=== PATIENT | female | born 1960 | race Caucasian/White ===

== ENCOUNTER 2020-09-12 09:30 | Day surgery (SDC) | payer BC ==
[~2020-09-12] VITALS: Ht 167.6 cm; Wt 103.6 kg
[~2020-09-12 09:30] MED LIST: AMLO5 PO; ASPI325 PO; LAMO25 PO; LOSA50 PO; METO100 PO; SITA100T2 PO; ZYRTEC10 M2 PO
--- NOTE | 2020-09-12 10:15 | NUR ---
PT [facility]. Ambulatory in Day Surgery. History, Chart, Medications and Allergies reviewed before start of procedure. Lungs clear T/O to Auscultation. Patient confirms NPO status and agrees with scheduled surgery. Pre-Op teaching done. Pt verbalizes understanding. Patient States Post-Procedure ride home has been arranged.
--- NOTE | 2020-09-12 10:32 | NUR ---
09/12/20 1032 Tyrone Beauchamp History, Chart, Medications and Allergies reviewed before start of procedure. MONITOR INTACT WITH CONTINUOUS PULSE OXIMETRY AND INTERMITTENT BP. 3-LEAD EKG REVIEWED WITH PHYSICIAN PRIOR TO START OF PROCEDURE. O2 VIA N/C INTACT THROUGHOUT SEDATION/PROCEDURE. PATIENT DETERMINED TO BE ASA APPROPRIATE FOR PROPOFOL SEDATION PRIOR TO START OF PROCEDURE BY DR. INGRAM.
--- NOTE | 2020-09-12 11:09 | NUR ---
RECIEVED PATIENT FROM ENDO 1 VSS PATIENT WAKING
--- NOTE | 2020-09-12 11:42 | NUR ---
Discharge instructions reviewed with patient. Patient verbalizes understanding. Copy given to patient to take home. Discharged via wheelchair to private car for ride home.
== END 2020-09-12 11:43 | disposition home or self-care (01) ==
LOC: ORSCMMR 09:30 → ORD 10:30 → ORSCMMR 11:43
PROVIDERS: Internal Medicine Gastroenterology
PROC: 0DBL8ZX Excision of Transverse Colon, Via Natural or Artificial Opening Endoscopic, Diagnostic (ICD-10-PCS; principal; 2020-09-12 10:30)
DX: Z12.11 Encounter for screening for malignant neoplasm of colon (principal); D12.3 Benign neoplasm of transverse colon; Z98.84 Bariatric surgery status; E11.9 Type 2 diabetes mellitus without complications; I10 Essential (primary) hypertension; Z79.82 Long term (current) use of aspirin; Z79.899 Other long term (current) drug therapy
CPT/HCPCS: 82947; 88305; J2704; J7120

== ENCOUNTER → 2021-08-21 | Outpatient (CLI) | payer BC | END | disposition home or self-care (01) | LOC: LAB SHORT 16:41 → LAB 16:41 | DX: N39.0 Urinary tract infection, site not specified (principal) | CPT/HCPCS: 87086; 87147 ==